=== PATIENT | female | born 1970 | race Caucasian/White ===

== ENCOUNTER 2016-02-29 16:42 | Emergency (ER) | payer OTHER ==
[~2016-02-29] VITALS: Ht 175.3 cm; Wt 90.7 kg
[2016-02-29 16:44] VITALS: BP 159/101
[2016-02-29] MEDS ORDERED: ZESTRIL30 MG PO (16:48)
[2016-02-29] MEDS ORDERED: NAPROSYN500 MG PO (17:09)
[2016-02-29] MEDS ORDERED: NORFLEX100 MG PO (17:09)
== END 2016-02-29 17:43 | disposition home or self-care (01) ==
LOC: ER 16:42
DX: S29.012A Strain of muscle and tendon of back wall of thorax, initial encounter (principal); F17.210 Nicotine dependence, cigarettes, uncomplicated; Z88.0 Allergy status to penicillin; X58.XXXA Exposure to other specified factors, initial encounter; Y93.89 Activity, other specified; Y92.89 Other specified places as the place of occurrence of the external cause; Y99.9 Unspecified external cause status